=== PATIENT | male | born 1980 | race Caucasian/White ===

== ENCOUNTER 2018-01-19 22:10 | Emergency (ER) | payer OTHER ==
[~2018-01-19] VITALS: Ht 190.5 cm; Wt 124.7 kg
[~2018-01-19 22:10] MED LIST: Amoxicillin500 MG PO; ERYT.5TO BOTHEYES; MECL12.5 PO
[2018-01-19] MEDS ORDERED: IBUP600 PO (23:03)
[2018-01-19] MEDS ORDERED: Bactrim Ds Tab1 EACH PO (23:03)
[2018-01-19] MEDS ORDERED: Norco 5-325 Ta1 EACH PO (23:03)
[2018-01-19] MEDS ORDERED: CEPH500 PO (23:03)
== END 2018-01-19 23:42 | disposition home or self-care (01) ==
LOC: ER 22:10
DX: S60.551A Superficial foreign body of right hand, initial encounter (principal); W45.8XXA Other foreign body or object entering through skin, initial encounter
CPT/HCPCS: 10120; 36415; 73130; 90471; 90714; 96374; 96375; 99284; J0690; J1885; J2405; J3010

== ENCOUNTER 2018-05-17 01:54 | Emergency (ER) | payer BC ==
[~2018-05-17] VITALS: Ht 190.5 cm; Wt 126.1 kg
[~2018-05-17 01:54] MED LIST changes: +Bactrim Ds Tab1 EACH PO; +CEPH500 PO; +IBUP600 PO; +Norco 5-325 Ta1 EACH PO
[2018-05-17] MEDS ORDERED: Augmentin 875-1 EACH PO (02:52)
== END 2018-05-17 02:57 | disposition home or self-care (01) ==
LOC: ER 01:54
DX: K04.7 Periapical abscess without sinus (principal)
CPT/HCPCS: 41800; 99283

== ENCOUNTER 2018-11-21 11:54 | Emergency (ER) | payer BC ==
[~2018-11-21] VITALS: Ht 190.5 cm; Wt 127.0 kg
[~2018-11-21 11:54] MED LIST changes: +Augmentin 875-1 EACH PO
== END 2018-11-21 14:00 | disposition home or self-care (01) ==
LOC: ER 11:54
DX: S61.212A Laceration without foreign body of right middle finger without damage to nail, initial encounter (principal); S61.011A Laceration without foreign body of right thumb without damage to nail, initial encounter; W45.8XXA Other foreign body or object entering through skin, initial encounter; I10 Essential (primary) hypertension; F17.220 Nicotine dependence, chewing tobacco, uncomplicated
CPT/HCPCS: 12001; 99282-25

== ENCOUNTER 2020-07-21 19:54 | Emergency (ER) | payer BC ==
[~2020-07-21] VITALS: Ht 190.5 cm; Wt 152.4 kg
== END 2020-07-21 20:28 | disposition left against medical advice (07) ==
LOC: ER 19:54
DX: Z53.21 Procedure and treatment not carried out due to patient leaving prior to being seen by health care provider (principal)

== ENCOUNTER 2025-08-22 01:14 | Emergency (ER) | payer OTHER | END 2025-08-22 03:15 | disposition home or self-care (01) | LOC: ER 01:14 | DX: R42 Dizziness and giddiness (principal); I10 Essential (primary) hypertension; F17.290 Nicotine dependence, other tobacco product, uncomplicated ==

== ENCOUNTER 2025-09-22 15:07 | Emergency (ER) | payer OTHER ==
[~2025-09-22] VITALS: Ht 190.5 cm; Wt 108.9 kg
[2025-09-22 15:22] VITALS: BP 182/100
[2025-09-22 16:15] LABS: Influenza A, PCR NEGATIVE (NEGATIVE); Influenza B, PCR NEGATIVE (NEGATIVE); Resp Syncytial Virus, PCR NEGATIVE (NEGATIVE); SARS-Cov-2 (COVID-19) PCR, MMC NEGATIVE (NEGATIVE)
[2025-09-22] MEDS ORDERED: AZIT250 PO (19:23)
== END 2025-09-22 19:31 | disposition home or self-care (01) ==
LOC: ER 15:07
PROVIDERS: Physician Assistant
DX: J20.9 Acute bronchitis, unspecified (principal); F17.220 Nicotine dependence, chewing tobacco, uncomplicated; Z59.89 Other problems related to housing and economic circumstances
CPT/HCPCS: 71046; 87637